=== PATIENT | male | born 1985 | race Caucasian/White ===

== ENCOUNTER → 2016-12-16 | Day surgery (SDC) | payer OTHER ==
[~2016-12-16] VITALS: Ht 170.2 cm; Wt 79.1 kg
[2016-12-16 10:20] LABS: HCT 44.2 % (42.0-52.0); HGB 15.3 g/dl (13.2-18.0); MCH 30.2 pg (25.0-31.0); MCHC 34.6 g/dL (32.0-36.0); MCV 87.4 fL (78.0-100.0); MPV 9.1 fL (6.0-9.5); RBC 5.06 M/uL (4.70-6.00); RDW 12.3 % (11.5-14.0); WBC 6.7 K/uL (4.0-10.5)
[2016-12-16 10:38] LABS: ALBUMIN 4.4 g/dL (3.5-5.0); BILIRUBIN - TOTAL 0.7 mg/dL (0.1-1.0); CREATININE 1.1 mg/dL (0.7-1.2); GLOBULIN (CALCULATION) 2.6 g/dL (2.2-4.2); POTASSIUM 4.1 mmol/L (3.5-5.1)
== END | disposition home or self-care (01) ==
LOC: FAS 08:46
PROVIDERS: Surgery
DX: K64.2 Third degree hemorrhoids (principal); K64.1 Second degree hemorrhoids; K62.5 Hemorrhage of anus and rectum; B19.20 Unspecified viral hepatitis C without hepatic coma; F41.9 Anxiety disorder, unspecified; R53.83 Other fatigue; F17.210 Nicotine dependence, cigarettes, uncomplicated; E53.8 Deficiency of other specified B group vitamins; E55.9 Vitamin D deficiency, unspecified; Z88.0 Allergy status to penicillin
CPT/HCPCS: 36415; 80053; 84443; 88305; J1100; J2704